=== PATIENT | female | born 1960 | race Caucasian/White ===

== ENCOUNTER 2023-02-08 07:43 | Day surgery (SDC) | payer OTHER ==
--- NOTE | 2023-02-08 08:07 | ED Physician Documentation ---
PD HPI ABD PAIN - Stated complaint Stated Complaint: N/V/D - Chief complaint Chief Complaint: Abd Pain - History obtained from History obtained from: Patient - History of Present Illness Timing - onset: How many days ago (2) Timing - duration: Days (2) Timing - details: Abrupt onset, Still present Quality: Aching, Pain Location: RUQ, Epigastric Radiation: Upper back Improved by: Laying still. No: Vomiting Worsened by: Eating, Moving Associated symptoms: Nausea, Vomiting. No: Fever, Diarrhea, Dysuria Similar symptoms before: No diagnosis (somewhat similar 2 weeks ago for short duration.) Recently seen: Not recently seen Review of Systems Constitutional: reports: Chills, Myalgias. denies: Fever Nose: denies: Rhinorrhea / runny nose, Congestion Throat: denies: Sore throat Respiratory: denies: Cough GI: reports: Abdominal Pain, Nausea, Vomiting. denies: Abdominal Swelling, Diarrhea, Hematemesis, Bloody / black stool : denies: Dysuria Neurologic: reports: Generalized weakness. 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 - Present Medications Home Medications: Ambulatory Orders Medication Instructions Recorded Confirmed oxyCODONE [Roxicodone] 5 mg PO Q4H PRN #15 tablet 02/08/23 polyethylene glycoL 3350(BULK) 17 gm PO DAILY #238 gm 02/08/23 [Miralax] - Allergies Allergies/Adverse Reactions: Allergies Allergy/AdvReac Type Severity Reaction Status Date / Time Penicillins Allergy Rash Verified 02/08/23 07:57 PD ED PE NORMAL - Vitals Vital signs reviewed: Yes - General General: Alert and oriented X 3, Well developed/nourished - Neck Neck: Supple, no meningeal sign, No adenopathy - Cardiac Cardiac: RRR, No murmur - Respiratory Respiratory: No respiratory distress, Clear bilaterally - Abdomen Abdomen: Normal bowel sounds, Soft, Non distended, No organomegaly, Other (RUQ abd tender with guarding and percussion tender. ) - Back Back: No CVA TTP - Derm Derm: Normal color, Warm and dry - Extremities Extremities: No edema, No calf tenderness / cord Results - Vitals Vitals: Vital Signs - 24 hr 02/08/23 02/08/2302/08/23 07:55 10:22 13:21 Temperature 36.7 C 36.7 C Heart Rate 83 85 85 Respiratory 20 20 20 Rate Blood Pressure 143/79 H 125/76 125/76 O2 Saturation 97 96 96 02/08/23 13:25 Temperature Heart Rate 86 Respiratory 18 Rate Blood Pressure 130/75 O2 Saturation 93 Oxygen O2 Source Room air - Labs Labs: Laboratory Tests 02/08/23 02/08/23 02/08/23 08:03 08:11 08:45 WBC 15.1 H RBC 5.09 Hgb 15.0 Hct 44.5 MCV 87.4 MCH 29.5 MCHC 33.7 RDW 13.1 Plt Count 308 MPV 9.6 Neut # (Auto) 11.9 H Lymph # (Auto) 1.8 [place] # (Auto) 1.4 H Eos # (Auto) 0.0 Baso # (Auto) 0.1 Absolute Nucleated RBC 0.00 Nucleated RBC % 0.0 Sodium 135 Potassium 3.7 Chloride 102 Carbon Dioxide 25 Anion Gap 8.0 BUN 8 Creatinine 0.5 L Estimated GFR (MDRD) 125 Glucose 110 H Calcium 9.3 Total Bilirubin 0.9 AST 15 ALT 23 Alkaline Phosphatase 57 Total Protein 7.0 Albumin 4.1 Globulin 2.9 Albumin/Globulin Ratio 1.4 Lipase 19 Urine Color DARK YELLOW Urine Clarity CLEAR Urine pH 7.0 Ur Specific [place] 1.010 Urine Protein NEGATIVE Urine Glucose (UA) NEGATIVE Urine Ketones 15 H Urine Occult Blood TRACE-INTA Urine Nitrite NEGATIVE Urine Bilirubin NEGATIVE Urine Urobilinogen 0.2 (NORMAL) Ur Leukocyte Esterase NEGATIVE Ur Microscopic Review NOT INDICATED Urine Culture Comments NOT INDICATED - Rads (name of study) RUQ US Relevant Findings:: Prelim report reviewed, EMP independent interpretation of test (gallstones, GB wall thickening to 5 mm, with positive sonographic murphys sign. No surrounding fluid. ), See rad report PD Medical Decision Making - ED course Complexity details: considered differential, d/w patient ED course: 2 days of upper abdominal pain with nausea and vomiting. No diarrhea. She has not had any upper respiratory symptoms. She is feeling generally weak now. Examination shows epigastric to right upper quadrant tenderness with Taylor sign. She does not look jaundiced. Type consideration is possibly gallbladder versus pancreatitis versus ulcer or colitis of the transverse colon. We will need to get labs as well as CT scan to better differentiate. Her labs came back showing normal LFTs and lipase. White count is elevated however at 15,000. Her electrolytes are in balance. The patient was given IV fluids along with Zofran and Toradol to help with symptoms. Famotidine for presumed some element of gastritis with 2 days of vomiting. We will get a ultrasound to evaluate. her ultrasound the ultrasound showed gallstones with one in the gallbladder neck that was nonmobile. There is gallbladder wall thickening up to 5 mm in areas. No surrounding fluid. She was quite tender right over the gallbladder however. Recheck of the patient after fluids and medications revealed she was less nauseated and her pain level was decreased. However she was still considerably tender in the right upper quadrant. There is combination would be consistent with acute cholecystitis. 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 Elevated white count. Did talk with Dr. Mcmullen on-call for surgery. She will come at her first available time being in the clinic at this moment. Recheck of the patient reveals she was comfortable enough at this point. She is kept n.p.o. IV fluids were continued. She declined any further pain medicine at this time. Patient was subsequently evaluated by surgery and shared decision to go to the OR for cholecystectomy. Departure - Departure Disposition: ED Transfer to [facility] Clinical Impression: Right upper quadrant abdominal pain, Nausea and vomiting, Acute cholecystitis Condition: Stable
[2023-02-08 08:19] LABS: GLUCOSE, URINE (UA) NEGATIVE (NEGATIVE); KETONES,URINE (UA) 15 mg/dL (NEGATIVE); LEUKOCYTE ESTERASE, URINE NEGATIVE (NEGATIVE); NITRITE,URINE NEGATIVE (NEGATIVE); OCCULT BLOOD,URINE TRACE-INTA (NEGATIVE); PROTEIN,URINE NEGATIVE (NEGATIVE); UROBILINOGEN,URINE 0.2 (NORMAL) E.U./dL (NORMAL)
[2023-02-08 08:20] LABS: BASOPHILS # (AUTO) 0.1 10^3/uL (0.0-0.1); BASOPHILS % (AUTO) 0.3 %; EOSINOPHILS % (AUTO) 0.1 %; HCT - HEMATOCRIT 44.5 % (37.0-47.0); LYMPHOCYTES # (AUTO) 1.8 10^3/uL (1.5-3.5); LYMPHOCYTES % (AUTO) 11.6 %; MEAN CORPUSCULAR HEMOGLOBIN 29.5 pg (27.0-31.0); MEAN CORPUSCULAR HGB CONC 33.7 g/dL (32.0-36.0); MEAN CORPUSCULAR VOLUME 87.4 fL (81.0-99.0); MEAN PLATELET VOLUME 9.6 fL (7.9-10.8); MONOCYTES # (AUTO) 1.4 10^3/uL (0.0-1.0); MONOCYTES % (AUTO) 9.1 %; NEUTROPHILS # (AUTO) 11.9 10^3/uL (1.5-6.6); NEUTROPHILS % (AUTO) 78.6 %; PLT - PLATELET COUNT 308 10^3/uL (130-450); RED BLOOD COUNT 5.09 10^6/uL (4.20-5.40); RED CELL DISTRIBUTION WIDTH 13.1 % (12.0-15.0); WHITE BLOOD COUNT 15.1 x10^3/uL (4.8-10.8)
[2023-02-08 08:22] LABS: CLARITY,URINE CLEAR (CLEAR)
[2023-02-08 08:23] LABS: BILIRUBIN,URINE NEGATIVE (NEGATIVE); ICTOTEST,URINE NEGATIVE
[2023-02-08] MEDS ORDERED: FAMOTIDINE 20 MG/2 ML VIAL IVP STA (08:27)
[2023-02-08] MEDS ORDERED: KETOROLAC 15 MG/ML VIAL IVP STA (08:27)
[2023-02-08] MEDS ORDERED: SODIUM CHLORIDE 0.9% 1,000 ML IV STA (08:27)
[2023-02-08] MEDS ORDERED: ONDANSETRON 4 MG/2 ML VIAL IVP STA (08:27)
[2023-02-08 09:03] LABS: ALBUMIN 4.1 g/dL (3.2-5.5); ALBUMIN/GLOBULIN RATIO 1.4 (1.0-2.2); BILIRUBIN,TOTAL 0.9 mg/dL (0.2-1.0); CALCIUM 9.3 mg/dL (8.5-10.3); CREATININE 0.5 mg/dL (0.6-1.3); POTASSIUM 3.7 mmol/L (3.5-4.5)
--- NOTE | 2023-02-08 09:33 | Ultrasound Report ---
PROCEDURE: Abdomen Limited INDICATIONS: R upper abd pain and vomiting 2 days TECHNIQUE: Real-time focused scanning was performed of the abdomen, with image documentation. COMPARISONS: None. FINDINGS: Liver: Question mild hepatomegaly. Liver measures 18.2 cm. There is increased echogenicity consisten t with diffuse fatty change. There are gallstones present in the gallbladder. There is no gallbladder wall thickening. No sonograp hic Taylor sign. Visualized portions the pancreas are unremarkable. Right kidney is normal in size measuring 11.1 cm. There is no hydronephrosis. No biliary ductal dilatation. Common duct measures 6 mm. IMPRESSION: 1. Mild hepatomegaly. Diffuse hepatic steatosis. 2. Cholelithiasis. Reviewed by: Christopher Christine MD on 02/08/2023 9:31 AM PDT Approved by: Christopher Christine MD on 02/08/2023 9:31 AM PDT Station ID: [id number]
[2023-02-08] MEDS ORDERED: LACTATED RINGERS 1,000 ML IV STA (12:12)
--- NOTE | 2023-02-08 12:40 | SURGERY HX AND PHYSICAL(T) ---
Surgical History & Physical - Chief Complaint/HPI Chief Complaint: abdominal pain History of Present Illness: This is a 63-year-old female who complains of acute onset epigastric and right upper quadrant abdominal pain which is sharp and constant in nature and associated with nausea vomiting approximately 4 PM on Sunday. Her symptoms have been relatively constant from that time until she presented to the emergency department earlier today. She has never had similar symptoms in the past. Her symptoms were made worse by trying to eat anything, palpating the area, and with activity. The only thing that caused her significant improvement in symptoms, was pain medication provided to her in the emergency department. At the time of my exam, the patient states she is feeling "much better." She denies any nausea at this time. She continues to have some abdominal discomfort. She thinks she may have had some chills but denies any fevers.She has not had anything to eat or drink today.The patient denies any recent sick contacts. - PMH/PSH/Social Hx Does the pt have a hx of MRSA?: No Orthopedic: Hip replacement (Left) PSH Other: x1 Smoking Status: Never smoker Does the pt drink ETOH?: Yes Frequency: Daily Amount/day: Glasses/day (4) Substance Use and Type: CBD oil / Products - Family Hx Family Hx: Other (Mother: COPD, father: Lung cancer, son: Leukemia) - Home Meds and Allergies Allergies/Adverse Reactions: Allergies Allergy/AdvReac Type Severity Reaction Status Date / Time Penicillins Allergy Rash Verified 02/08/23 07:57 - Review of Systems Constitutional: Other (A complete 10 point review of symptoms is otherwise negative except for that noted in HPI and PMH.) - Vital Signs Heart Rate: 85 Blood Pressure: 125/76 Temperature: 36.7 C Respiratory Rate: 20 O2 Saturation: 96 Weight (kg): 81.647 kg Height: 1.6 m - Physical Exam Comments/Other: GEN: No acute distress, appears younger than stated age, alert and oriented HEENT: NCAT, MMM, EOMI NEURO: CN II-XII grossly intact, no obvious focal deficits CV: RRR, no murmer appreciated PULM: CTAB, no wheezes appreciated ABD: soft, obese, with moderate tenderness to palpation in the right upper quadrant, otherwise nontender, negative Taylor's sign, no rebound or guarding CIRCULATORY: no clubbing, cyanosis, or edema SKIN: no lesions appreciated LYMPH: no obvious lymphadenopathy MSK: 4/4 strength in all extremities PSYCH: Affect is appropriate - Patient Review Patient Review: Problems were reviewed with the patient during this visit. Medications were reviewed with the patient during this visit. Allergies were reviewed this patient during this visit. Pertinent Tests Reviewed: All pertitent test for this patient were reviewed. - Assessment & Plan Assessment and Plan: This is a 63-year-old female with: 1. Acute cholecystitis The patient's history, physical exam, laboratory studies, and imaging are consistent with this diagnosis. She does have a leukocytosis. I personally reviewed and interpreted the images and reviewed the report from the patient's abdominal ultrasound. There are some focal areas of wall thickening measuring up to 5 mm, but the majority of the gallbladder wall is not thickened. There is no pericholecystic fluid. There are gallstones. The common bile duct does not appear dilated. I discussed the natural history of acute cholecystitis with the patient. We also discussed the risks, benefits, and alternatives of laparoscopic cholecystectomy with cholangiogram and possible open procedure. We discussed surgical risks including bleeding, infection, and damage to surrounding structures. We also discussed the intraoperative and postoperative plan including the possible need for drain placement and possibility of an open procedure. The patient voiced understanding, her questions were answered, and she wished to proceed with surgery. A consent was signed by the patient. The patient's , Abel, was also present at the time of our discussion and his questions were answered. -I anticipate the patient will be able to advance her diet and discharge after surgery this evening. I sent prescriptions for oxycodone and MiraLAX to the patient's pharmacy of choice now to allow for those to be picked up prior to her discharge. I would like the patient to follow-up with me in 2-4 weeks.
[2023-02-08] MEDS ORDERED: ACETAMINOPHEN 500 MG TABLET PO STA (13:14)
[2023-02-08] MEDS ORDERED: GABAPENTIN 300 MG CAPSULE PO STA (13:15)
[2023-02-08] MEDS ORDERED: acetaZOLAMIDE 250 MG TABLET PO SCH (13:15)
[2023-02-08] MEDS ORDERED: IBUPROFEN 400 MG TABLET PO STA (13:18)
[2023-02-08] MEDS ORDERED: ceFAZolin 2 GM VIAL ONE (13:47)
[2023-02-08] MEDS ORDERED: ceFAZolin 2 GM in SODIUM CHLORIDE 0.9% MINIBAG 100 ML IV ONE (14:00)
[2023-02-08] MEDS ORDERED: SODIUM CHLORIDE 0.9% 1,000 ML IV SCH (14:00)
[2023-02-08] MEDS ORDERED: LACTATED RINGERS 1,000 ML IV ONE ×2 (14:36→17:45)
[2023-02-08] MEDS ORDERED: BUPIVACAINE 0.25% PF 30 ML VIAL ONE (14:39)
[2023-02-08] MEDS ORDERED: LIDOCAINE 1%-EPI 1:100000 20 ML MDV ONE (14:39)
[2023-02-08] MEDS ORDERED: iohexoL-240 10 ML VIAL IVP ONE ×2 (14:39→17:14)
[2023-02-08] MEDS ORDERED: metroNIDAZOLE 500 MG/100 ML 500 MG/100 ML BAG ONE (15:17)
[2023-02-08] MEDS ORDERED: PROPOFOL 200 MG/20 ML VIAL IVP ONE (15:42)
[2023-02-08] MEDS ORDERED: MIDAZOLAM 2 MG/2 ML VIAL ONE (15:42)
[2023-02-08] MEDS ORDERED: fentaNYL 100 MCG/2 ML VIAL ONE ×2 (15:42→17:39)
[2023-02-08] MEDS ORDERED: ROCURONIUM 50 MG/5 ML VIAL ONE ×2 (15:42→16:27)
[2023-02-08] MEDS ORDERED: ONDANSETRON 4 MG/2 ML VIAL IVP PRN ×2 (15:58→17:48)
[2023-02-08] MEDS ORDERED: ePHEDrine 50 MG/ML VIAL IVP PRN (15:58)
[2023-02-08] MEDS ORDERED: NALOXONE 0.4 MG/ML VIAL IVP PRN (15:58)
[2023-02-08] MEDS ORDERED: ATROPINE ABBOJECT 1 MG/10 ML SYRINGE IVP PRN (15:58)
[2023-02-08] MEDS ORDERED: METOCLOPRAMIDE 10 MG/2 ML VIAL IVP PRN (15:58)
[2023-02-08] MEDS ORDERED: fentaNYL 100 MCG/2 ML VIAL IVP PRN (15:58)
--- NOTE | 2023-02-08 15:58 | ANESTHESIA ---
Pre-Anesthesia VS, & Labs - Diagnosis cholelithiasis - Procedure laparoscopic cholecystectomy Vital Signs: Temp Pulse Resp BP Pulse Ox O2 Flow Rate 37.3 C 91 16 141/82 H 95 0 02/08/23 14:47 02/08/23 14:47 02/08/23 14:47 02/08/23 14:47 02/08/23 14:47 02/08/23 14:47 Height: 5 ft 3 in Weight (kg): 81.6 kg Body Mass Index: 31.8 BMI Classification: Obese - NPO >8 hours - Is Patient ?: No - Lab Results Current Lab Results: Laboratory Tests 02/08/23 08:45: Sodium 135, Potassium 3.7, Chloride 102, Carbon Dioxide 25, Anion Gap 8.0, BUN 8, Creatinine 0.5 L, Estimated GFR (MDRD) 125, Glucose 110 H, Calcium 9.3, Total Bilirubin 0.9, AST 15, ALT 23, Alkaline Phosphatase 57, Total Protein 7.0, Albumin 4.1, Globulin 2.9, Albumin/Globulin Ratio 1.4, Lipase 19 02/08/23 08:11: WBC 15.1 H, RBC 5.09, Hgb 15.0, Hct 44.5, MCV 87.4, MCH 29.5, MCHC 33.7, RDW 13.1, Plt Count 308, MPV 9.6, Neut # (Auto) 11.9 H, Lymph # (Auto) 1.8, [place] # (Auto) 1.4 H, Eos # (Auto) 0.0, Baso # (Auto) 0.1, Absolute Nucleated RBC 0.00, Nucleated RBC % 0.0 Lab results reviewed: Yes Fish Bones: 02/08/23 08:11 02/08/23 08:45 Home Medications and Allergies Active Medications Sodium Chloride (Normal Saline 0.9%) 1,000 mls @ 125 mls/hr IV .Q8H SKYLA Metronidazole (Flagyl 500 Mg/100 Ml) 500 mg in 100 mls @ 100 mls/hr IV ONCE SKYLA Stop: 02/08/23 17:30 Ondansetron HCl (Ondansetron 4 Mg/2 Ml Vial) 4 mg IVP Q6HR PRN PRN Reason: Nausea / Vomiting Allergies/Adverse Reactions: Allergies Allergy/AdvReac Type Severity Reaction Status Date / Time morphine Allergy Edema Verified 02/08/23 15:31 Penicillins Allergy Rash Verified 02/08/23 07:57 Anes History & Medical History - Anesthetic History Anesthesia Complications: reports: No previous complications, Post-Operative Nausea/Vomiting Family history of Anesthesia Complications: Denies Family history of Malignant Hyperthermia: Denies - Medical History Cardiovascular: reports: None Pulmonary: reports: None Gastrointestinal: reports: GERD Urinary: reports: None Endocrine/Autoimmune: reports: None Smoking Status: Never smoker - Surgical History Gynecologic: reports: section Orthopedic: reports: Hip replacement Other Past Surgical History: x1 Exam General: Alert, Oriented x3, Cooperative Dental: WNL Mouth Openin Fingerbreadth Neck Mobility: Normal Mallampati classification: III Thyromental Distance: 4-6 cm Respiratory: Lungs clear, Normal breath sounds, No respiratory distress Cardiovascular: Regular rate Mental/Cognitive Status: Alert/Oriented X3, Normal for patient Cognitive Status: Within normal limits Plan Anesthesia Type: General Consent for Procedure(s) Verified and Reviewed: Yes Code Status: Attempt Resuscitation ASA classification: 2-Mild systemic disease Is this case an emergency?: Yes
[2023-02-08] MEDS ORDERED: ceFAZolin 2 GM VIAL IVP SCH (16:00)
[2023-02-08] MEDS ORDERED: metroNIDAZOLE 500 MG/100 ML 500 MG/100 ML BAG IV SCH (16:00)
[2023-02-08] MEDS ORDERED: LACTATED RINGERS 1,000 ML IV SCH (16:00)
[2023-02-08] MEDS ORDERED: PHENYLEPHRINE 10 MG/ML VIAL ONE (16:19)
[2023-02-08] MEDS ORDERED: LIDOCAINE 1%-EPI 1:100000 20 ML MDV SUBQ ONE (16:21)
[2023-02-08] MEDS ORDERED: BUPIVACAINE 0.25% PF 30 ML VIAL SUBQ ONE (16:22)
[2023-02-08] MEDS ORDERED: ONDANSETRON 4 MG/2 ML VIAL ONE (16:46)
[2023-02-08] MEDS ORDERED: DEXAMETHASONE 4 MG/ML VIAL ONE (16:46)
[2023-02-08] MEDS ORDERED: SUGAMMADEX 200 MG/2 ML VIAL IVP ONE (17:21)
[2023-02-08] MEDS ORDERED: HYDROmorphone 0.5 MG/0.5 ML SYRINGE IVP PRN (17:48)
[2023-02-08] MEDS ORDERED: oxyCODONE 5 MG TABLET PO PRN (17:48)
--- NOTE | 2023-02-08 17:59 | OPERATIVE REPORT ---
Operative Report - General Procedure Date: 02/08/23 Planned Procedure: Laparoscopic cholecystectomy with intraoperative cholangiogram Pre-Op Diagnosis: Acute cholecystitis Procedure Performed: Laparoscopic cholecystectomy with intraoperative cholangiogram Post Op Diagnosis: Acute calculus cholecystitis with hydrops - Procedure Note Primary Surgeon: Dr. Shobha Sykes Anesthesia Provider: Raj Schneider CRNA Anesthesia Technique: General ET tube, Local Estimated Blood Loss (mL): 30 Indications: The patient has had right upper quadrant pain for the last 2 days. Work-up in the emergency department is consistent with acute cholecystitis. I discussed the risks, benefits, and alternatives of laparoscopic cholecystectomy with intraoperative cholangiogram and the possibility of the need for an open procedure with the patient preoperatively. Risks discussed include bleeding, infection, damage to surrounding structures, and the need for further surgeries or procedures. The patient voiced understanding, her questions were answered, and she wished to proceed. A consent was signed by the patient prior to surgery. Findings: 1.Acute calculus cholecystitis with hydrops 2. Intrahepatic gallbladder 3. Normal cholangiogram Complications: None - Other Other Information/Narrative: The patient was brought to the operative suite and placed in the supine position. General endotracheal anesthesia was induced. Preoperative antibiotics were given. ERAS protocol was followed. A preop surgical timeout was performed. Local anesthetic was injected into the skin and subcutaneous tissues just inferior to the umbilicus. An 11 blade scalpel was used to make a 5 mm transverse skin incision in this location. Next, a hemostat was used to spread the tissues down to the level of the fascia and a Bolivar clamp was used to grasp and elevate the umbilical stalk. A Varess needle was used to gain access to the peritoneal space. Low flow insufflation revealed low pressures and then high flow insufflation was undertaken to 15 mmHg. Next, the Varess needle was removed and a 5 mm laparoscopic port was inserted in this location. Through this port, a 5 mm 30 degree laparoscope was inserted. On inspection of the abdomen no injury was caused on entry. Next, the patient was placed in reverse Trendelenburg and rotated slightly to the left. Two 5 mm ports were inserted in the right upper quadrant, one in the anterior axillary line and the other in the midclavicular line. Also, a 12 mm port was inserted in the subxiphoid region. All ports were placed by first anesthetizing the skin and subcutaneous tissues with local anesthetic, then by making an appropriate length incision with an 11 blade scalpel, and finally by placing the port under direct laparoscopic vision. Once the ports were in place, a ratcheted, toothed grasper was used to elevate the fundus of the gallbladder toward the patient's right shoulder. There were loose and dense adhesions in the right upper quadrant between the omentum, duodenum and the gallbladder. These were carefully taken down with blunt and sharp dissection with electrocautery. Next, the peritoneum was incised starting at the hilum of the gallbladder and working toward the fundus along the gallbladder liver interface on the medial and lateral aspects of the gallbladder. Next, attention was returned to the hilum of the gallbladder. The alveolar tissues in this region were taken down with blunt and sharp dissection with electrocautery taking great care not to cauterize though any tissue I could not easily see through. There was extensive edema in this location making gallbladder also made retraction difficult. Two ductal structures were isolated and skeletonized such that each ductal structure could be visualized with liver present on either side. The cystic plate was also developed. At this time, it was felt that a critical view of safety had been obtained. Next, a clip was placed distally, that is toward the gallbladder, on the cystic duct and just proximal to this a ductotomy was performed. A cholangiogram catheter was placed within the duct and it was flushed with saline. There was no leakage and it flushed easily. Clips were also placed proximally and distally on the cystic artery. Full strength Isovue dye was then placed on the cholangiogram catheter and a cholangiogram was performed. The cholangiogram appeared normal. There was good filling of the right and left hepatic system as well as the duodenum and common bile duct. There were no filling defects. Next the cholangiogram catheter was removed. Two clips were placed proximally on the cystic duct. The cystic duct and cystic artery were divided using laparoscopic scissors between the clips. An Endoloop was placed on the cystic duct stump to reduce the risk of postop bile leak. Next the gallbladder was dissected off of the liver bed. Once it was completely freed, the gallbladder was placed in an Endo Catch bag and removed through the epigastric port. The epigastric port was replaced and suction and irrigation were used to remove any fluid from the right upper quadrant. This was done until the fluid returned was clear. Next, a laparoscopic fascial closure device was used to place 2, interrupted 0 Vicryl sutures at the epigastric port. This reapproximated the fascia well. The remaining ports were removed under direct laparoscopic vision and the abdomen was deflated. Next, the skin edges were reapproximated with 4-0 Monocryl in an interrupted subcuticular fashion. A sterile dressing of skin glue was placed. The patient tolerated the procedure well. The patient was extubated in the operating room and transferred to the recovery room in stable condition. There were no complications.
--- NOTE | 2023-02-08 18:14 | ANESTHESIA POST OP EVALUATION ---
Anesthesia Post Eval - Post Anesthesia Eval Vitals: Last Vital Signs Temp 36.8 C 02/08/23 18:10 Pulse 79 02/08/23 18:10 Resp 16 02/08/23 18:10 BP 137/70 H 02/08/23 18:10 Pulse Ox 98 02/08/23 18:10 O2 Flow Rate 0 02/08/23 14:47 CV Function Including HR & BP: Stable Pain Control: Satisfactory Nausea & Vomiting: Negative Mental Status: Baseline Respiratory Status: Airway Patent Hydration Status: Satisfactory Anesthesia Complications: None
[2023-02-08] MEDS: KETOROLAC 15 MG/ML VIAL IVP PRN (18:40)
[2023-02-08] MEDS: ONDANSETRON 4 MG/2 ML VIAL IVP PRN (18:45)
[2023-02-08] MEDS: ACETAMINOPHEN 500 MG TABLET PO PRN (20:14)
[2023-02-09] MEDS: ACETAMINOPHEN 500 MG TABLET PO PRN ×3 (00:20→12:26)
[2023-02-09] MEDS: ONDANSETRON 4 MG/2 ML VIAL IVP PRN (00:20)
[2023-02-09] MEDS: KETOROLAC 15 MG/ML VIAL IVP PRN ×2 (02:25→08:37)
--- NOTE | 2023-02-09 09:06 | XRAY Report ---
PROCEDURE: OR C-Arm Procedure INDICATIONS: CHOLANGIOGRAM FLUORO TIME: 0.4 TECHNIQUE: Intraoperative fluoroscopic injection of the cystic duct during cholecystectomy. COMPARISON: None. FINDINGS: The common bile duct is patent with no stone. Contrast flows into the duodenum. IMPRESSION: Normal intraoperative postcholecystectomy cholangiogram. Reviewed by: Ty Corral on 02/09/2023 9:05 AM ANDREZ Approved by: Ty Corral on 02/09/2023 9:05 AM [facility] Station ID: [id number]
--- NOTE | 2023-02-09 10:25 | PHARMACY PROGRESS NOTE ---
- Best Possible Medication History Admit Date and Time: Processed by: Pharmacy Medication History completed: Yes Patient Interview: Completed Secondary Source(s): Pharmacy records As the person ultimately responsible for medication therapy, providers are able to order a medication from an existing home medication list in [facility] via the "Reconcile Routine" prior to Confirmation of that medication by lab support tech. Such practice is discouraged except when the physician, in their clinical judgment, deems that a medical need exists for a medication without regard to previous use.
[2023-02-09 12:28] VITALS: BP 124/64
== END 2023-02-09 12:46 | disposition home or self-care (01) ==
LOC: ED 07:43 → SDS 12:44 → MS2 18:20 → SDS 02-09 12:46
PROVIDERS: ATTEND Surgery
PROC: BF141ZZ Fluoroscopy of Gallbladder, Bile Ducts and Pancreatic Ducts using Low Osmolar Contrast (ICD-10-PCS; 2023-02-08)
PROC: 0FT44ZZ Resection of Gallbladder, Percutaneous Endoscopic Approach (ICD-10-PCS; principal; 2023-02-08 15:00)
DX: K80.00 Calculus of gallbladder with acute cholecystitis without obstruction (principal); K82.1 Hydrops of gallbladder; E66.9 Obesity, unspecified; Z68.31 Body mass index [BMI] 31.0-31.9, adult
CPT/HCPCS: 36415; 47563; 76705; 80053; 81003; 83690; 85025; 96374; 96375; 99284; 99285; A9270; C1758; J7120; Q9966; 81001; 87086